=== PATIENT | male | born 1995 | race Caucasian/White ===

== ENCOUNTER 2016-05-11 20:51 | Emergency (ER) | payer SELFPAY ==
[~2016-05-11] VITALS: Ht 170.2 cm; Wt 77.3 kg
[2016-05-11] MEDS ORDERED: KEFLEX500 MG PO (23:02)
[2016-05-11] MEDS ORDERED: NORCO 5/3251 TABLET PO (23:02)
[2016-05-11 23:19] VITALS: BP 139/83
== END 2016-05-11 23:20 | disposition home or self-care (01) ==
LOC: EME 20:51
PROC: 0H9KXZZ Drainage of Right Lower Leg Skin, External Approach (ICD-10-PCS; principal; 2016-05-11)
DX: L02.415 Cutaneous abscess of right lower limb (principal); L03.115 Cellulitis of right lower limb
CPT/HCPCS: 87070; 87075; 87077; 87147; 87186; 87205; 99281; 99284

== ENCOUNTER 2016-05-13 16:33 | Emergency (ER) | payer SELFPAY ==
[~2016-05-13] VITALS: Ht 170.2 cm; Wt 77.2 kg
[~2016-05-13 16:33] MED LIST: KEFLEX500 MG PO; NORCO 5/3251 TABLET PO
[2016-05-13] MEDS ORDERED: BACTRIM,SEPT1 TABLET PO (18:22)
[2016-05-13 18:40] VITALS: BP 144/84
== END 2016-05-13 18:41 | disposition home or self-care (01) ==
LOC: EME 16:33
DX: L02.415 Cutaneous abscess of right lower limb (principal); Z98.890 Other specified postprocedural states; Z09 Encounter for follow-up examination after completed treatment for conditions other than malignant neoplasm
CPT/HCPCS: 99281; 99283

== ENCOUNTER 2016-06-08 14:01 | Emergency (ER) | payer SELFPAY ==
[~2016-06-08] VITALS: Ht 170.2 cm; Wt 74.5 kg
[~2016-06-08 14:01] MED LIST changes: +BACTRIM,SEPT1 TABLET PO
[2016-06-08 16:25] VITALS: BP 141/83
== END 2016-06-08 16:26 | disposition home or self-care (01) ==
LOC: EME 14:01
PROC: 3E0234Z Introduction of Serum, Toxoid and Vaccine into Muscle, Percutaneous Approach (ICD-10-PCS; principal; 2016-06-08)
DX: S41.112A Laceration without foreign body of left upper arm, initial encounter (principal); W25.XXXA Contact with sharp glass, initial encounter; Z23 Encounter for immunization
CPT/HCPCS: 99281; 99284